=== PATIENT | female | born 1935 | race Caucasian/White ===

== ENCOUNTER 2022-01-26 08:08 | Outpatient (CLI) | payer MEDICARE, OTHER, SELFPAY ==
[2022-01-26 11:03] LABS: Cholesterol* 227 mg/dL (90-199)
[2022-01-26 11:04] LABS: HDL Cholesterol* 51 mg/dL (>=50); LDL Cholesterol Calculated 133 mg/dL (<100); Triglycerides* 214 mg/dL (40-149)
== END 2022-01-26 08:09 | disposition home or self-care (01) ==
LOC: NFLDREF 08:08
PROVIDERS: PCP Internal Medicine; Visit Provider Internal Medicine
DX: E78.5 Hyperlipidemia, unspecified (principal); R03.0 Elevated blood-pressure reading, without diagnosis of hypertension
CPT/HCPCS: 80061

== ENCOUNTER 2022-03-17 09:53 | Outpatient (CLI) | payer MEDICARE, OTHER, SELFPAY ==
--- NOTE | 2022-03-17 10:15 | CRLHL7_ITS ---
For Patients: As a result of the Century Cures Act, medical imaging exams and procedure reports are released immediately into your electronic medical record. You may view this report before your referring provider. If you have questions, please contact your health care provider. BILATERAL SCREENING MAMMOGRAM WITH COMPUTER-AIDED DETECTION AND TOMOSYNTHESIS TECHNIQUE: CC and MLO views were obtained. These mammographic images have been obtained using full-field digital technique. These mammographic images were interpreted with the benefit of computer-aided detection. Breast Tomosynthesis was used in this interpretation. COMPARISON FILM: 01/29/21, 10/29/19, 08/15/18. FINDINGS: There are scattered areas of fibroglandular density IMPRESSION: There is no radiographic evidence for malignancy. ASSESSMENT: BI-RADS Category 2: Benign RECOMMENDATION: Routine screening mammogram in 1 year. A lay language report of this examination will be provided to the patient. Nelson Whitney M.D. Diagnostic/Nuclear Medicine Radiologist [email or web address] TIFFANI/Dictated by: Nelson Whitney MD @ 03/18/2022 8:18:00 AM (Electronically Signed)
== END 2022-03-17 09:54 | disposition home or self-care (01) ==
LOC: MAMMO 09:55
PROVIDERS: PCP Internal Medicine; Visit Provider Internal Medicine
DX: Z12.31 Encounter for screening mammogram for malignant neoplasm of breast (principal)
CPT/HCPCS: 77063; 77067

== ENCOUNTER 2022-09-12 10:20 | Emergency (ER) | payer MEDICARE, OTHER, SELFPAY ==
[2022-09-12] VITALS (29 sets, daily range): BP systolic 153–177; BP diastolic 74–134; PULSE 76–96; RESP 16; TEMP 36.1; O2SAT 79–98; BMI 28.3
--- NOTE | 2022-09-12 10:49 | CRLHL7_ITS ---
For Patients: As a result of the Century Cures Act, medical imaging exams and procedure reports are released immediately into your electronic medical record. You may view this report before your referring provider. If you have questions, please contact your health care provider. DATE: 09/12/2022 CLINICAL HISTORY: Patient with weakness. TECHNIQUE: Standard helical CT image acquisition through the intracranial circulation following intravenous administration of contrast material with bolus tracking. Multiplanar reconstructed images were performed and interpreted. 2D and 3D MIP images for post-processing were performed and interpreted on an independent workstation and 3D images were permanently archived. COMPARISON: CT same day. FINDINGS: There is no cerebral aneurysm or acute large vessel occlusion. 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 The right internal carotid artery is normal. The right middle cerebral artery and its branches are normal. The right anterior cerebral artery and its branches are normal. The left internal carotid artery is normal. The left middle cerebral artery and its branches are normal. The left anterior cerebral artery and its branches are normal. The anterior communicating artery is well visualized and appears normal. The right vertebral artery and PICA are normal. The left vertebral artery and PICA are normal. The left vertebral artery is dominant. The basilar artery is patent and appears normal. The left posterior cerebral artery is normal. IMPRESSION: 1. No cerebral aneurysm or acute large vessel occlusion. 2. 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 Please note that all CT scans at this facility use dose modulation, iterative reconstruction, and/or weight-based dosing when appropriate to reduce radiation dose to as low as reasonably achievable. Dictated by Hakan Page MD @ 09/12/2022 8:00:15 PM (Electronically Signed)
--- NOTE | 2022-09-12 10:49 | CRLHL7_ITS ---
For Patients: As a result of the Century Cures Act, medical imaging exams and procedure reports are released immediately into your electronic medical record. You may view this report before your referring provider. If you have questions, please contact your health care provider. DATE: 09/12/2022 CLINICAL HISTORY: Patient with weakness. TECHNIQUE: Standard helical CT image acquisition of the neck up to the skull base after bolus intravenous contrast enhancement. Multiplanar reconstructed images performed on a separate workstation. 2D and 3D MIP images for post-processing were performed and interpreted on an independent workstation and 3D images were permanently archived. COMPARISON: CT same day. FINDINGS: The origins of the great vessels from the aortic arch are patent. The origin of the right vertebral artery is patent. The origin of the left vertebral artery is patent. The common carotid arteries are patent. There is a mild (<50%) stenosis at the origin of the right internal carotid artery by NASCET criteria. This is caused by calcified plaque with a <2mm residual lumen. There is a mild (<50%) stenosis at the origin of the left internal carotid artery by NASCET criteria. This is caused by non-calcified plaque with a <2mm residual lumen. The rest of the cervical segments of the internal carotid arteries are patent up to the skull base. The left vertebral artery is dominant. The cervical segments of the vertebral arteries are patent up to the skull base. The visualized lung apices are unremarkable. The thyroid gland demonstrates a 2.2cm heterogeneous lesion in its right lobe. The soft tissues of the neck are unremarkable. There are degenerative changes in the cervical spine. IMPRESSION: 1. Mild (<50%) stenosis at the origin of the right internal carotid artery by NASCET criteria caused by calcified plaque with a <2mm residual lumen. 2. Mild (<50%) stenosis at the origin of the left internal carotid artery by NASCET criteria caused by non-calcified plaque with a <2mm residual lumen. 3. 2.2cm heterogeneous right thyroid lesion. Further evaluation with ultrasound is recommended. Please note that all CT scans at this facility use dose modulation, iterative reconstruction, and/or weight-based dosing when appropriate to reduce radiation dose to as low as reasonably achievable. Dictated by Hakan Page MD @ 09/12/2022 7:56:56 PM (Electronically Signed)
--- NOTE | 2022-09-12 10:49 | CRLHL7_ITS ---
For Patients: As a result of the Century Cures Act, medical imaging exams and procedure reports are released immediately into your electronic medical record. You may view this report before your referring provider. If you have questions, please contact your health care provider. INDICATION: weakness TECHNIQUE: CT of the head without contrast. Coronal and sagittal reformats. Bone and soft tissue algorithms. COMPARISON: No prior studies available for comparison at this institution. FINDINGS: No acute intracranial hemorrhage or extraaxial collection. No evidence of acute cortical infarction. No mass effect or midline shift. Mild generalized cerebral and cerebellar parenchymal volume loss. Mild regions of decreased attenuation within the periventricular and subcortical white matter of both cerebral hemispheres most likely reflects chronic microvascular ischemic disease and age related change in this patient. Vascular calcifications within the carotid siphons. Orbital contents are normal. No calvarial fractures. No lytic or sclerotic osseous lesions within the calvarium or skull base. Scalp and other imaged soft tissue structures are normal. Mastoid air cells are clear. IMPRESSION: No acute intracranial abnormality. Please note that all CT scans at this facility use dose modulation, iterative reconstruction, and/or weight-based dosing when appropriate to reduce radiation dose to as low as reasonably achievable. Dictated by Americo Stapleton MD @ 09/12/2022 11:23:54 AM (Electronically Signed)
[2022-09-12 11:05] LABS: Lactate* 2.4 mmol/L (0.5-1.9)
[2022-09-12 11:08] LABS: Basophils Percent Auto 0.1 % (0.0-3.0); Eosinophils Percent Auto 1.6 % (0.0-7.0); Hematocrit 44.8 % (33.0-51.0); Immature Granulocytes Pct Auto 0.6 %; Mean Corpuscular HGB Conc 34 gm/dL (32-36); Mean Corpuscular Hemoglobin 31 pg (26-34); Mean Corpuscular Volume 93 fL (80-100); Neutrophils Percent Auto 67.7 % (42.0-72.0); Platelet Count* 225 K/uL (140-440); White Blood Count* 11.57 K/uL (4.50-11.00)
[2022-09-12 11:24] LABS: Slide Review Reflex No
[2022-09-12 11:26] LABS: Albumin* 4.3 g/dL (3.3-5.0); Chloride* 105 mmol/L (96-114); Sodium* 137 mmol/L (135-149)
[2022-09-12 11:27] LABS: Potassium* 4.2 mmol/L (3.6-5.1)
--- NOTE | 2022-09-12 11:27 | ED.GENADULT ---
HPI - General Adult General Chief complaint: Weakness Stated complaint: Confusion, aura Time Seen by Provider: 09/12/22 10:51 Source: patient and family Mode of arrival: ambulatory Limitations: no limitations History of Present Illness HPI narrative: 86-year-old female coming in today at the request of her for not feeling well. Patient tells me that she woke up this morning with a migraine aura which she frequently gets. She describes it as difficulty seeing, brain fog, mild confusion, difficulty speaking. She states that she gets these episodes frequently although she can not quite tell me how frequent. She states that they last about 20 minutes when they do come. The episode passed and she went to amish with her . The right when mass started she began to feel nauseated so she went to set out in the truck. An usher went to get her for her and when he got to the car he stated that she did not look good and so he brought her straight here. Patient states that she put her head down in the truck because she felt like she could throw up and so she does remember the truck ride because her head was down. However, she can tell me everything about this morning, amish, getting in the car, and getting here. She does not appear to have any amnesia. Now she tells me that she feels fine and that the episode has passed. She tells me again that this is a common occurrence for her but she feels like they are occurring more and more frequently, states that it has been at least 6 months to a year of having these frequent episodes. The episodes are all just about the same. She does take 1 Aleve at night for joint pain as well as 1 daily baby aspirin. She does have a history of elevated cholesterol, is not on a statin. Has no personal history of blood clots or previous CVA. Patient does not smoke or drink alcohol. She denies any recent illness, chest pain, shortness of breath or abdominal discomfort. She denies any coughing. Denies any focal neurologic deficits. Related Data Home Medications Medication Instructions Recorded Confirmed aspirin 81 mg capsule 81 mg PO QDAY 02/01/22 08/23/22 multivitamin 1 tab PO QAM 02/01/22 08/23/22 Allergies Allergy/AdvReac Type Severity Reaction Status Date / Time Erythromycin Allergy Mild Cough Uncoded 08/23/22 11:10 Review of Systems Status of ROS: Reports: 10 or more systems reviewed and unremarkable except as noted in History and below [facility] Surgical History History of cataract surgery ?Z98.49 - Cataract extraction status, unspecified eye (ICD-10) History of hysterectomy ?Z90.710 - Acquired absence of both cervix and uterus (ICD-10) History of shoulder surgery ?Z98.890 - Other specified postprocedural states (ICD-10) History of cholecystectomy ?Z90.49 - Acquired absence of other specified parts of digestive tract (ICD-10) Social History Smoking Status: Never smoker Little interest or pleasure in doing things: not at all Feeling down, depressed, or hopeless: not at all Exam Narrative: Exam Narrative: Well-nourished well-developed patient in no acute distress. Alert and oriented x3. Answers questions appropriately. Mood and affect are appropriate. Thoughts are goal oriented and rational. No tangential or magical thinking noted. Patient speaks in full sentences without needing to catch their breath. Speech is not slurred or pressured. HEENT: Normocephalic atraumatic. Pupils are equally round reactive to light. Extraocular muscles are intact. Conjunctivae are moist without any icterus noted. Moist mucous membranes. Posterior pharynx is normal. Neck is soft without any lymphadenopathy or thyromegaly. No masses are appreciated. Cardiovascular: Heart is regular rate and rhythm S1 and S2 are present without any murmurs. Lungs: Bibasilar end-expiratory crackles. Patient takes deep breaths without any discomfort. Abdomen: Soft and nontender nondistended with normal bowel sounds. Extremities: Bilateral lower extremities are without edema. Normal DP and PT pulses. Skin: Well perfused without any obvious rashes. Strength is 5/5 of the upper and lower extremities. Reflexes are 2+ and symmetric at the knees. Cranial nerves 3-12 are normal. [id number] is normal. There is no nystagmus either horizontally or vertically. Gait is normal. Const: Vital Signs, click to edit/add: Vital Signs - 24 hr 09/12/22 10:35 09/12/22 11:00 Temperature 97.0 F L Pulse Rate [Pulse Oximeter] 80 Respiratory Rate 16 Blood Pressure [Ri ght Upper Arm] 170/82 H Pulse Oximetry 97 97 Oxygen Delivery Me thod Room Air Course Course Hospital Course: Upon arrival, patient with straight to head CT: Head CT and CTA unremarkable. EKG, read by me, shows normal sinus rhythm with a pulse of 82. Lactate was slightly elevated at 2.4, CRP also slightly elevated. White cell count was 11.5. Remainder of lab work was unremarkable. Her glucose was 152 this morning, she has had orange juice. I did speak to Dr. Casey, neurology at [facility], about the patient's symptoms today. Although a TIA cannot be 100% ruled out it does certainly sound more that her symptoms are due to migraine auras given their frequency, the lack of localization, and the fact that they are often the same symptoms recurring repeatedly. I did speak to him about her CTA results, he stated that the potential posterior cerebral artery occlusion does not warrant any intervention at this time. Patient received 500 mL of normal saline. Repeat lactate normalized to 1.1. Chest x-ray was done to look for any evidence of other infection that could be causing elevated CRP and lactate, this was read by me, did not show any acute pathology. UA unremarkable. Vital Signs Vital signs: Initial Vital Signs Temperature 97.0 F L 09/12/22 10:35 Temperature Source Temporal Artery Scan 09/12/22 10:35 Pulse Rate 80 09/12/22 10:35 Respiratory Rate 16 09/12/22 10:35 Blood Pressure 170/82 H 09/12/22 10:35 Blood Pressure Mean 111 H 09/12/22 10:35 Blood Pressure Position Sitting 09/12/22 10:35 Pulse Oximetry 97 09/12/22 10:35 Oxygen Delivery Method Room Air 09/12/22 10:35 Vital Signs Temperature 97.0 F L 09/12/22 10:35 Pulse Rate 80 09/12/22 10:35 Respiratory Rate 16 09/12/22 10:35 Blood Pressure 170/82 H 09/12/22 10:35 Pulse Oximetry 97 09/12/22 10:35 Oxygen Delivery Method Room Air 09/12/22 10:35 Temperature 97.0 F L 09/12/22 10:35 Pulse Rate 80 09/12/22 10:35 Respiratory Rate 16 09/12/22 10:35 Blood Pressure 170/82 H 09/12/22 10:35 Pulse Oximetry 97 09/12/22 11:00 Oxygen Delivery Method Room Air 09/12/22 10:35 Medical Decision Making MDM Narrative Medical decision making narrative: 86-year-old female with migraine headaches with aura. Differential diagnosis does include TIA her though given the description of her episodes this is less likely. We discussed continuing her daily aspirin, following up with primary care if her symptoms are recurring more frequently or lasting longer. Of note, throughout her stay here she was completely asymptomatic and was feeling fine. Patient was agreeable with everything we had discussed and she had no other questions or concerns. Medical Records Medical records reviewed: Yes I reviewed the patient's medical records Lab Data Lab results reviewed: Yes I reviewed the patient's lab results Labs: Lab Results 09/12/22 09/12/22 09/12/22 Range/Units 10:45 13:01 13:37 WBC 11.57 H (4.50-11.00) K/uL RBC 4.80 (4.00-5.20) m/uL Hgb 15.0 (12.0-16.0) gm/dL Hct 44.8 (33.0-51.0) % MCV 93 (80-100) fL MCH 31 (26-34) pg MCHC 34 (32-36) gm/dL RDW Coeff of Francisco J 13.0 (11.5-15.5) % Plt Count 225 (140-440) K/uL Neut % (Auto) 67.7 (42.0-72.0) % Lymph % (Auto) 21.0 (20-44) % [place] % (Auto) 9.0 (0.0-11.0) % Eos % (Auto) 1.6 (0.0-7.0) % Baso % (Auto) 0.1 (0.0-3.0) % Neut # (Auto) 7.80 H (1.7-7.0) K/uL Lymph # (Auto) 2.40 (0.90-2.90) K/uL [place] # (Auto) 1.00 H (0.00-0.90) K/UL Eos # (Auto) 0.20 (0.00-0.50) K/uL Baso # (Auto) 0.00 (0.00-0.30) K/uL Sodium 137 (135-149) mmol/L Potassium 4.2 (3.6-5.1) mmol/L Chloride 105 (96-114) mmol/L Carbon Dioxide 25 (20-32) mmol/L BUN 17 (7-30) mg/dL Creatinine 0.7 (0.5-1.5) mg/dL Estimated Creat Clear 34.64 Estimated GFR 85 ml/min Glucose 152 H (60-115) mg/dL Lactate 2.4 H 1.1 (0.5-1.9) mmol/L Calcium 9.5 (8.4-10.6) mg/dL Total Bilirubin 1.0 (0.1-1.5) mg/dL Direct Bilirubin 0.2 (0.0-0.5) mg/dL AST 30 (12-35) U/L ALT 20 (4-35) U/L Alkaline Phosphatase 66 (40-150) U/L Troponin I < 0.01 L (0.01-0.04) ng/mL C-Reactive Protein 2.7 H (0.5-1.0) mg/dL Total Protein 7.6 (6.0-8.3) g/dL Albumin 4.3 (3.3-5.0) g/dL Urine Color Yellow (Yellow) Urine Appearance Clear (Clear) Urine pH 7.0 (5.0-8.5) Ur Specific [place] 1.015 (1.000-1.030) Urine Protein Negative (Negative) Urine Glucose (UA) Negative (Negative) Urine Ketones Negative (Negative) Urine Blood Trace-intact A (Negative) Urine Nitrite Negative (Negative) Urine Bilirubin Negative (Negative) Urine Urobilinogen 0.2 (0.2-1.0) Ur Leukocyte Esterase Negative (Negative) Urine RBC 0-2 (0-2) Urine WBC 0-2 (0-5) Ur Squamous Epith Cells Few (None-Few) Urine Bacteria None (None) Salicylates < 1.0 L (1.0-10) mg/dL Urine Opiates Screen Negative (Negative) Ur Oxycodone Screen Negative (Negative) Urine Methadone Screen Negative (Negative) Ur Propoxyphene Screen Negative (Negative) Acetaminophen 11.0 (10.0-30.0) ug/mL Ur Barbiturates Screen Negative (Negative) U Tricyclic Antidepress Negative (Negative) Ur Phencyclidine Scrn Negative (Negative) Ur Amphetamines Screen Negative (Negative) U Methamphetamines Scrn Negative (Negative) U Benzodiazepines Scrn Negative (Negative) Urine Cocaine Screen Negative (Negative) U Marijuana (THC) Screen Negative (Negative) Ur Drug Screen Comment See Note Ethyl Alcohol < 0.01 L (0.01-0.03) % POC Troponin I 0.00 L (0.01-0.04) ng/ml Imaging Data CT scan - head: Attestation: I have reviewed the pertinent imaging results. Radiologist's impression: CT of the head without contrast. Coronal and sagittal reformats. Bone and soft tissue algorithms. COMPARISON: No prior studies available for comparison at this institution. FINDINGS: No acute intracranial hemorrhage or extraaxial collection. No evidence of acute cortical infarction. No mass effect or midline shift. Mild generalized cerebral and cerebellar parenchymal volume loss. Mild regions of decreased attenuation within the periventricular and subcortical white matter of both cerebral hemispheres most likely reflects chronic microvascular ischemic disease and age related change in this patient. Vascular calcifications within the carotid siphons. Orbital contents are normal. No calvarial fractures. No lytic or sclerotic osseous lesions within the calvarium or skull base. Scalp and other imaged soft tissue structures are normal. Mastoid air cells are clear. IMPRESSION: No acute intracranial abnormality. CTA Head/Neck: Attestation: I have reviewed the pertinent imaging results. Radiologist's impression: Preliminary Report: 1. Dimminutive right posterior cerebral artery may be occluded distal to the P2 segment. Unremarkable anterior circulation. origin of the left posterior cerebral artery. 2. Dimminutive right vertebral artery functionally terminates as the right PICA. Dimminutive basilar artery. 3. Dominant left verterbral artery is unremakable. 4. Mild (less than 50 percent) stenosis at the ICA bifurcations due to plaque. 5. Heterogeneous right thyroid nodule can be further evaluated with US. Chest x-ray: Attestation: I have reviewed the pertinent imaging results. Radiologist's impression: Two view chest. FINDINGS: The lungs are clear. The heart, mediastinum and pulmonary vessels are of normal size. There is no evidence of pleural disease. Large hiatal hernia. IMPRESSION: Negative chest. ECG Data Attestation: I personally reviewed and interpreted this ECG as follows: Discharge Plan Discharge Clinical Impression: Migraine with aura, Dehydration Patient Disposition: Home, Self-Care Condition: Improved Additional Instructions: Your workup was unremarkable today. It sounds like you are likely having migraines with aura. If these episodes become more frequent or last longer, you should follow-up with your primary care provider right away. In the meantime I do recommend that you drink more water throughout the day as it did appear that you were slightly dehydrated today. Continue taking your daily aspirin. Prescriptions: No Action multivitamin Tablet 1 tab PO QAM aspirin 81 mg capsule 81 mg PO QDAY Follow Up/Referrals: Jessica Ramirez MD [Primary Care Provider] - Stand Alone Forms: [employer] Info Instructions
[2022-09-12 11:29] LABS: Alkaline Phosphatase* 66 U/L (40-150); Aspartate Amino Transferase* 30 U/L (12-35); Bilirubin Direct* 0.2 mg/dL (0.0-0.5); Blood Urea Nitrogen* 17 mg/dL (7-30); Carbon Dioxide* 25 mmol/L (20-32); Creatinine* 0.7 mg/dL (0.5-1.5); Est. Creatinine Clearance* 34.64; Estimated Glomerular Filt Rate 85 ml/min; Total Protein* 7.6 g/dL (6.0-8.3)
[2022-09-12 11:30] LABS: Alanine Aminotransferase* 20 U/L (4-35); Calcium* 9.5 mg/dL (8.4-10.6); Glucose* 152 mg/dL (60-115)
[2022-09-12 11:32] LABS: C Reactive Protein* 2.7 mg/dL (0.5-1.0)
[2022-09-12 11:35] LABS: Ethanol* < 0.01 % (0.01-0.03); Salicylate* < 1.0 mg/dL (1.0-10)
--- NOTE | 2022-09-12 11:41 | CRLHL7_ITS ---
For Patients: As a result of the Century Cures Act, medical imaging exams and procedure reports are released immediately into your electronic medical record. You may view this report before your referring provider. If you have questions, please contact your health care provider. INDICATION: Shortness of breath TECHNIQUE: Two view chest. FINDINGS: The lungs are clear. The heart, mediastinum and pulmonary vessels are of normal size. There is no evidence of pleural disease. Large hiatal hernia. IMPRESSION: Negative chest. Dictated by Veronica Cutler MD @ 09/12/2022 12:43:12 PM (Electronically Signed)
[2022-09-12 11:43] LABS: Troponin I* < 0.01 ng/mL (0.01-0.04)
[2022-09-12] MEDS: 0.9 % SODIUM CHLORIDE 500 ML 500 ML IV (11:50)
[2022-09-12 13:13] LABS: Appearance Urine Clear (Clear); Bilirubin Urine Negative (Negative); Blood Urine Trace-intact (Negative); Color Urine Yellow (Yellow); Glucose Urine Negative (Negative); Ketones Urine Negative (Negative); Leukocyte Esterase Urine Negative (Negative); Nitrite Urine Negative (Negative); Protein Urine Negative (Negative); Specific Gravity Urine 1.015 (1.000-1.030); Urobilinogen Urine 0.2 (0.2-1.0)
[2022-09-12 13:19] LABS: Amphetamine Screen Urine Negative (Negative); Barbiturate Screen Urine Negative (Negative); Benzodiazepines Screen Urine Negative (Negative); Cannabinoid Screen Urine Negative (Negative); Cocaine Screen Urine Negative (Negative); Methadone Screen Urine Negative (Negative); Methamphetamines Screen Urine Negative (Negative); Opiate Screen Urine Negative (Negative); Oxycodone Screen Urine Negative (Negative); Phencyclidine Screen Urine Negative (Negative); Tricyclic Antidepressant Urine Negative (Negative)
[2022-09-12 13:42] LABS: RBC Urine 0-2 (0-2); Squamous Epithelial Cell Urine Few (None-Few); WBC Urine 0-2 (0-5)
[2022-09-12 13:56] LABS: Lactate* 1.1 mmol/L (0.5-1.9)
== END 2022-09-12 14:47 | disposition home or self-care (01) ==
PROVIDERS: Emergency Provider Family Medicine; PCP Internal Medicine
DX: G43.109 Migraine with aura, not intractable, without status migrainosus (principal)
CPT/HCPCS: 36415; 70450; 70496; 70498; 71046; 80048; 80076; 80143; 80179; 80306; 81001; 82077; 83605; 84484; 85025; 86140; 87086; 93005; 94761; 99284; 99285; J7120; Q9967

== ENCOUNTER 2022-11-22 08:18 | Outpatient (CLI) | payer MEDICARE, OTHER, SELFPAY ==
[2022-11-22 08:50] LABS: Creatinine* 0.7 mg/dL (0.5-1.5); Estimated Glomerular Filt Rate 85 ml/min
--- NOTE | 2022-11-22 09:00 | CRLHL7_ITS ---
For Patients: As a result of the Cures Act, medical imaging exams and procedure reports are released immediately into your electronic medical record. You may view this report before your referring provider. If you have questions, please contact your health care provider. INDICATION: Epigastric abdominal pain. Dyspepsia. TECHNIQUE: CT of the abdomen and pelvis. 80 cc nonionic Isovue-370 administered. COMPARISON: Noncontrast abdominopelvic CT October 17, 2021. FINDINGS: Clear included lung bases. Large esophageal hiatal hernia/intrathoracic stomach unchanged. Surgically absent gallbladder. Few small hepatic cysts. Central intrahepatic biliary ductal dilatation secondary to the post cholecystectomy state is unchanged. No solid hepatic mass. No splenomegaly. Normal-appearing pancreas, adrenal glands, and there is no evidence for hydronephrosis. Small bilateral renal cortical cysts. Vascular calcification within a mildly tortuous abdominal aorta and iliac arteries. Normal inferior vena cava. Surgically absent uterus. No bowel obstruction or ileus. No ascites or lymphadenopathy. Normal-appearing urinary bladder. Calcified pelvic phleboliths. Lumbar scoliotic curvature convex towards the left. Multilevel degenerative disc disease. Multilevel degenerative facet arthropathy of the lumbar spine. IMPRESSION: 1. No acute abdominopelvic process identified. 2. Large hiatal hernia/intrathoracic stomach similar to the prior study. 3. Surgically absent gallbladder and uterus. 4. Hepatic and renal cysts. Please note that all CT scans at this facility use dose modulation, iterative reconstruction, and/or weight-based dosing when appropriate to reduce radiation dose to as low as reasonably achievable. Dictated by Nelson Whitney MD @ 11/22/2022 10:42:56 AM (Electronically Signed)
== END 2022-11-22 08:19 | disposition home or self-care (01) ==
LOC: CT 08:19
PROVIDERS: PCP Internal Medicine; Visit Provider Internal Medicine
DX: R10.13 Epigastric pain (principal); K44.9 Diaphragmatic hernia without obstruction or gangrene; K76.89 Other specified diseases of liver; N28.1 Cyst of kidney, acquired
CPT/HCPCS: 36415; 74177; 82565; Q9967

== ENCOUNTER 2022-12-22 13:26 | Outpatient (CLI) | payer MEDICARE, OTHER, SELFPAY | END 2022-12-22 13:27 | disposition home or self-care (01) | LOC: LKVREF 13:29 | PROVIDERS: PCP Internal Medicine; Visit Provider Otolaryngology | DX: R41.89 Other symptoms and signs involving cognitive functions and awareness (principal); E78.5 Hyperlipidemia, unspecified; R03.0 Elevated blood-pressure reading, without diagnosis of hypertension | CPT/HCPCS: 86140 ==

== ENCOUNTER 2023-03-14 15:17 | Outpatient (CLI) | payer MEDICARE, OTHER, SELFPAY | END 2023-03-14 15:18 | disposition home or self-care (01) | LOC: LONREF 15:17 | PROVIDERS: PCP Family Medicine; Visit Provider Family Medicine | DX: E04.1 Nontoxic single thyroid nodule (principal) | CPT/HCPCS: 84443 ==

== ENCOUNTER 2023-08-12 08:01 | Outpatient (CLI) | payer MEDICARE, OTHER, SELFPAY ==
--- NOTE | 2023-08-12 08:15 | MM_ITS ---
Patient: LORNA WOODALL Facility:?[facility] Patient ID:?[id number] Site Patient ID:?[id number]. Site :?[id number] Study:?XRay-Breast Bilateral 3D-08/12/2023 8:35:09 AM Ordering Physician:eugene Final Report: BILATERAL SCREENING MAMMOGRAM WITH COMPUTER-AIDED DETECTION AND TOMOSYNTHESIS TECHNIQUE: CC and MLO views were obtained. These mammographic images have been obtained using full-field digital technique. These mammographic images were interpreted with the benefit of computer-aided detection. Breast Tomosynthesis was used in this interpretation. COMPARISON FILM: 03/17/22, 01/29/21, 10/29/19. FINDINGS: There are scattered areas of fibroglandular density. IMPRESSION: There is no radiographic evidence for malignancy. ASSESSMENT: BI-RADS Category 2: Benign RECOMMENDATION: Routine screening mammogram in 1 year. A lay language report of this examination will be provided to the patient. Americo White M.D. Diagnostic Radiologist [email or web address] ROWENA/sp R& Transcribed: 4:29 p.m. SP/Dictated by: Americo White MD @ 08/12/2023 11:52:00 AM Signed by:?Americo White MD @08/12/2023 4:32:11 PM (Electronic Signature)
== END 2023-08-12 08:02 | disposition home or self-care (01) ==
LOC: MAMMO 08:02
PROVIDERS: PCP Internal Medicine; Visit Provider Internal Medicine
DX: Z12.31 Encounter for screening mammogram for malignant neoplasm of breast (principal)
CPT/HCPCS: 77063; 77067

== ENCOUNTER 2023-08-31 10:46 | Outpatient (CLI) | payer MEDICARE, OTHER, SELFPAY ==
--- NOTE | 2023-08-31 11:15 | US_ITS ---
Patient: LORNA WOODALL Facility:?[facility] Patient ID:?[id number] Site Patient ID:?[id number]. Site :?[id number] Study:?US-Thyroid -08/31/2023 11:41:03 AM Ordering Physician:Jessica Gonsalves Final Report: INDICATION: Thyroid nodule COMPARISON: CT 09/13/2019 TECHNIQUE: Nielsen scale and color Doppler images were acquired of the thyroid gland. FINDINGS: The isthmus measures 3.4 millimeters. Complex solid and heterogeneous nodule right thyroid lobe measures 2.8 x 1.9 x 1.9 cm, TR 4. Slightly hyperechoic nodule within the right thyroid lobe measures 7 x 4 x 9 millimeters. Calcified nodule left thyroid lobe measures 4 x 3 x 3 millimeters. The right lobe measures 4.4 x 2.6 x 2.4 cm and the left lobe measures 2.8 x 1.5 x 1.0 cm in size. The color Doppler images demonstrate normal vascularity. There is no evidence of cervical lymphadenopathy or parathyroid mass. IMPRESSION: TR 4 nodule right thyroid lobe measuring 2.8 cm. FNA recommended. Dictated by Americo White MD @ 09/01/2023 5:35:59 AM Signed by:?Americo White MD @09/01/2023 5:35:59 AM (Electronic Signature)
== END 2023-08-31 10:47 | disposition home or self-care (01) ==
LOC: US 10:47
PROVIDERS: PCP Internal Medicine; Visit Provider Internal Medicine
DX: E04.1 Nontoxic single thyroid nodule (principal)
CPT/HCPCS: 76536

== ENCOUNTER 2023-12-27 09:55 | Outpatient (CLI) | payer MEDICARE, OTHER, SELFPAY ==
--- NOTE | 2023-12-27 10:15 | CRLHL7_ITS ---
For Patients: As a result of the Century Cures Act, medical imaging exams and procedure reports are released immediately into your electronic medical record. You may view this report before your referring provider. If you have questions, please contact your health care provider. INDICATION: Cognitive changes TECHNIQUE: Noncontrast Sagittal T1,Axial FSE T2, Flair, DWI images submitted. Compared to prior study from September 12, 2022 FINDINGS: Moderate cerebral atrophy. 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 The ventricles, sulci and gyri are of normal size, shape and contour for age and degree of atrophy. Midline structures are centrally located. No convincing evidence of suspicious intra- or extra-axial fluid collections. Mild patchy regions of increased T2 signal within the periventricular and subcortical white matter of both cerebral hemispheres. No regions of restricted diffusion. IMPRESSION: 1. No radiographic evidence of acute intracranial abnormalities. 2. Moderate cerebral atrophy. 3. Mild supratentorial white matter changes that are non-specific, but statistically most likely related to chronic small vessel ischemic disease. Dictated by Aníbal Baez MD @ 12/27/2023 6:57:09 PM (Electronically Signed)
== END 2023-12-27 09:56 | disposition home or self-care (01) ==
LOC: MRI 09:56
PROVIDERS: PCP Internal Medicine; Visit Provider Internal Medicine
DX: R41.89 Other symptoms and signs involving cognitive functions and awareness (principal); G31.9 Degenerative disease of nervous system, unspecified
CPT/HCPCS: 70551

== ENCOUNTER 2024-04-11 12:39 | Outpatient (CLI) | payer MEDICARE, OTHER, SELFPAY ==
--- NOTE | 2024-04-11 13:00 | CRLHL7_ITS ---
For Patients: As a result of the Cures Act, medical imaging exams and procedure reports are released immediately into your electronic medical record. You may view this report before your referring provider. If you have questions, please contact your health care provider. INDICATION: Nontoxic thyroid nodules, follow-up. Also the patient reportedly refuses thyroid biopsy. TECHNIQUE: Directed thyroid ultrasound. Grayscale and color Doppler images were acquired of the thyroid gland. COMPARISON: August 31, 2023. FINDINGS: The right thyroid gland measures 4.6 x 2.5 x 2.4 cm. The left thyroid lobe measures 4.1 x 1.5 x 1.2 cm. The isthmus measures 0.4 cm in thickness. There is a benign peripherally calcified 3 x 3 x 4 mm stable nodule superior pole left thyroid lobe. Within the mid right thyroid lobe there is a solid heterogeneous nodule measuring 2.8 x 2.1 x 2.4 cm previously 2.8 x 1.9 x 1.9 cm. This nodule appears to contain multiple small calcifications. Ultrasound-guided biopsy is recommended. An ultrasound-guided biopsy had been recommended previously but reportedly was declined. Indeterminate but relatively stable 1.1 x 0.4 x 1.2 cm cystic and solid nodule inferior pole right thyroid lobe. Color Doppler images demonstrates normal vascularity. IMPRESSION: 1. Largely solid 2.8 cm lesion mid right thyroid lobe containing small microcalcifications. Fine needle aspiration/biopsy is recommended. TI-RADS 4B. 2. Peripherally calcified 3-4 mm nodule superior pole left thyroid gland unchanged. 3. 1.1 cm nodule inferior pole right thyroid lobe previously 0.9 cm which can be followed Dictated by Nelson Whitney MD @ 04/13/2024 1:48:50 PM (Electronically Signed)
== END 2024-04-11 12:40 | disposition home or self-care (01) ==
PROVIDERS: PCP Internal Medicine; Visit Provider Internal Medicine
DX: E04.1 Nontoxic single thyroid nodule (principal)
CPT/HCPCS: 76536

== ENCOUNTER 2024-05-07 09:47 | Outpatient (CLI) | payer MEDICARE, OTHER, SELFPAY ==
--- NOTE | 2024-05-07 10:15 | CRLHL7_ITS ---
For Patients: As a result of the Century Cures Act, medical imaging exams and procedure reports are released immediately into your electronic medical record. You may view this report before your referring provider. If you have questions, please contact your health care provider. INDICATION : Right thyroid nodule. TECHNIQUE : Ultrasound-guided fine needle aspiration of thyroid nodule. COMPARISON : 04/11/2024 FINDINGS : PROCEDURE: After the informed consent and time-out, multiple fine needle aspirations were obtained from the thyroid nodule. Fine needle performed. 25 gauge needles were used. Lidocaine was used for local anesthesia. The preliminary cytology was adequate for interpretation. Real-time imaging was used for guidance and needle placement. Post imaging ultrasound demonstrates no immediate complication. IMPRESSION : Successful fine needle aspiration of right thyroid nodule. Dictated by mAerico White MD @ 05/07/2024 12:09:32 PM (Electronically Signed)
== END 2024-05-07 09:48 | disposition home or self-care (01) ==
LOC: US 09:47
PROVIDERS: PCP Internal Medicine; Visit Provider Internal Medicine
DX: E04.1 Nontoxic single thyroid nodule (principal)
CPT/HCPCS: 10005; 76942

== ENCOUNTER 2024-09-11 14:38 | Outpatient (CLI) | payer MEDICARE, OTHER, SELFPAY | END 2024-09-11 14:39 | disposition home or self-care (01) | PROVIDERS: PCP Internal Medicine; Visit Provider Internal Medicine | DX: E04.1 Nontoxic single thyroid nodule (principal); R41.89 Other symptoms and signs involving cognitive functions and awareness | CPT/HCPCS: 84439; 84443; 84481 ==